=== PATIENT | female | born 1960 | race Caucasian/White ===

== ENCOUNTER 2017-11-24 20:03 | Emergency (ER) | payer OTHER ==
[2017-11-24 20:19] VITALS: BP 149/76
--- NOTE | 2017-11-24 20:38 | UC ---
Respiratory Complaint HPI - HPI Summary HPI Summary: The pt is a57 y/o female presenting to c/o a sore throat worse on the R side for the last 3 days worse today. She reports that her face feels full and has "electric shocks" on left side of chest. The throat pain rated 6/10 in severity is aggravated by swallowing and alleviated by Tylenol. She notes swelling on R side of the neck , sinus congestion, thick phlegm , slight clear rhinorrhea , and bilateral ear ache worse in the R side. The pt denies dental pain, wheezing ,palpitations , ankle edema ,CP , nausea and dyspnea. She has a MHx of asthma but denies a hx of HLD and HTN. She reports a potential allergy to Penicillin. This is scribe Adrianna Skelton documenting for attending Dr. Randell Rose. I, Dr. Randell Rose , personally performed the services described in this documentation as scribed in my presence and it is both accurate and complete. - History of Current Complaint Chief Complaint: UCRespiratory Stated Complaint: SORE THROAT Time Seen by Provider: 11/24/17 20:24 Hx Obtained From: Patient Onset/Duration: Lasting Days - 3 days, Still Present, Worse Since - Today Severity Initially: Moderate Severity Currently: Moderate Pain Intensity: 6 Pain Scale Used: 0-10 Numeric Aggravating Factors: Other - Swallowing Alleviating Factors: OTC Meds - Tylenol Associated Signs And Symptoms: Positive: Nasal Congestion, Sinus Discomfort. Negative: Dyspnea, Pleuritic Chest Pain, Wheezing, Edema - Allergies/Home Medications Allergies/Adverse Reactions: Allergies Allergy/AdvReac Type Severity Reaction Status Date / Time Perfume AdvReac Intermediate Eyes Verified 11/24/17 20:19 Itchy/Swollen/Red/Watery PMH/Surg Hx/FS Hx/Imm Hx Previously Healthy: No Endocrine History: Hypothyroidism Cardiovascular History: Other - Cardiomegaly Other Cardiovascular History: . Respiratory History: Asthma, Other - Sleep apnea Other Respiratory History: . - Surgical History Surgical History: Yes Surgery Procedure, Year, and Place: Melanoma x 2, C section, Appendectomy - Family History Known Family History: Positive: Diabetes - Social History Occupation: Employed Full-time Lives: With Family Alcohol Use: Rare Substance Use Type: None Smoking Status (MU): Former Smoker Type: Cigarettes Amount Used/How Often: 1 pack per week Length of Time of Smoking/Using Tobacco: 20 years Have You Smoked in the Last Year: No When Did the Patient Quit Smoking/Using Tobacco: 2004 - Immunization History Most Recent Influenza Vaccination: 01/24 Review of Systems ENT: Negative - Dental pain, Sore Throat, Ear Ache - Worse in the R ear, Nasal Discharge, Sinus Congestion, Other - Positive : Rhinorrhea, neck swelling, thick phlegm Respiratory: Negative - Dyspnea, CP, wheezing, palpitations Gastrointestinal: Negative - nausea Musculoskeletal: Negative - Ankle edema All Other Systems Reviewed And Are Negative: Yes Physical Exam - Summary Physical Exam Summary: General: well-appearing, no pain distress Skin: warm, color reflects adequate perfusion, dry Head: normal Eyes: EOMI, RISHI ENT: Positive pharynx erythema; Positive rhinorrhea Neck: supple, nontender Respiratory: CTA, breath sounds present Cardiovascular: RRR Abdomen: soft, nontender Bowel: present Musculoskeletal: normal, strength/ROM intact Neurological: sensory/motor intact, A&O x3 Psychological: affect/mood appropriate Triage Information Reviewed: Yes Vital Signs: Initial Vital Signs Temp 98 F 11/24/17 20:10 Pulse 84 11/24/17 20:10 Resp 16 11/24/17 20:10 BP 149/76 11/24/17 20:10 Pulse Ox 97 11/24/17 20:10 Vital Signs Reviewed: Yes UC Diagnostic Evaluation - Laboratory Pertinent Lab Values Are: WNL - RAPID STREP NEGATIVE O2 Sat by Pulse Oximetry: 97 - EKG EKG Comments: 20: 28 Cardiac Rate: NL Cardiac Rhythm: Sinus: Normal - 75 bpm Ectopy: None Respiratory Course/Dx - Course Course Of Treatment: DISCUSSED VIRAL VERSES BACTERIAL INFECTION AND THE ROLE OF ANTIBIOTICS. THE PATIENT WISHES TO BE ON ANTIBIOTICS AT THIS TIME. RX AUGMENTIN. NO CHEST PAIN OR SHORTNESS OF BREATH. DISCUSSED GOING TO THE EMERGENCY DEPARTMENT FOR ANY CHEST PAIN. - Differential Dx/Diagnosis Provider Diagnoses: PHARYNGITIS Discharge - Sign-Out/Discharge Documenting (check all that apply): Patient Departure - DC - Discharge Plan Condition: Stable Disposition: HOME Prescriptions: Amoxicillin/Clavulanate TAB* [Augmentin TAB 875*] 875 mg PO BID #19 tab Patient Education Materials: Pharyngitis (ED) Referrals: Willian Fong MD [Primary Care Provider] - Additional Instructions: GO TO THE EMERGENCY DEPARTMENT WITH ANY CHEST PAIN OR SENSATION, SHORTNESS OF BREATH, PALPITATIONS, WORSENING OF YOUR CONDITION OR QUESTIONS OR CONCERNS. FOLLOW UP WITH YOUR DOCTOR. TAKE IBUPROFEN OR TYLENOL DIRECTED NEEDED. USE OVER THE COUNTER MEDICATIONS SUCH DAYQUIL DIRECTED NEEDED. - Billing Disposition and Condition Condition: STABLE Disposition: Home
[2017-11-24] MEDS ORDERED: Azithromycin TAB* 250 MG PO ONE (20:45)
[2017-11-24] MEDS ORDERED: Amoxicillin/Clavulanate TAB* 875 MG PO ONE (20:51)
== END 2017-11-24 21:20 | disposition home or self-care (01) ==
LOC: UCEAST 20:03
DX: J02.9 Acute pharyngitis, unspecified (principal); R07.89 Other chest pain; Z87.891 Personal history of nicotine dependence
CPT/HCPCS: 87651; 93005; 99212; A9270-GY; G0463